=== PATIENT | female | born 1960 | race Caucasian/White ===

== ENCOUNTER → 2016-03-31 | Outpatient (CLI) | payer BC | LOC: LAB 10:18 | DX: I48.0 Paroxysmal atrial fibrillation (principal); I49.3 Ventricular premature depolarization ==

== ENCOUNTER → 2016-12-24 | Outpatient (CLI) | payer BC | LOC: MAMMO 09:53 | DX: Z12.31 Encounter for screening mammogram for malignant neoplasm of breast (principal) | CPT/HCPCS: G0202 ==

== ENCOUNTER → 2018-03-24 | Outpatient (CLI) | payer BC | LOC: MAMMO 03-10 10:00 | DX: Z12.31 Encounter for screening mammogram for malignant neoplasm of breast (principal) ==

== ENCOUNTER → 2019-02-28 | Outpatient (CLI) | payer BC ==
[2019-02-28 09:14] LABS: EOS # 0.2 (0.04-0.40); EOS % 2.8 % (1.0-5.0); HEMATOCRIT 42.1 % (37.0-47.0); HEMOGLOBIN 13.9 g/dL (12.5-16.0); LYMPH# 1.5 (1.50-4.00); MEAN CELL VOLUME 84 fl (78-100); MEAN CORPUSCULAR HEMOGLOBIN 28 pg (27-31); MEAN CORPUSCULAR HGB CONC 33 g/dL (33-37); MEAN PLATELET VOLUME 8.2 fl (7.4-10.4); MONO # 0.7 (0.20-0.80); NEU # 5.7 (1.40-6.50); PLATELET COUNT 304 K/mm3 (130-400); RED CELL DISTRIBUTION WIDTH 13.6 % (11.5-14.5); WHITE BLOOD COUNT 8.2 K/mm3 (4.8-10.8)
[2019-02-28 09:28] LABS: ALBUMIN 3.9 g/dL (3.5-5.0); POTASSIUM 4.3 mmol/L (3.5-5.1)
[2019-02-28 09:30] LABS: CALCIUM 9.5 mg/dL (8.3-10.5)
[2019-02-28 09:33] LABS: TOTAL BILIRUBIN 0.5 mg/dL (0.2-1.2)
== END ==
LOC: LAB 09:00
PROVIDERS: Obstetrics & Gynecology
DX: Z00.00 Encounter for general adult medical examination without abnormal findings (principal)

== ENCOUNTER → 2020-04-09 | Outpatient (CLI) | payer BC | LOC: MAMMO 10:00 | DX: Z12.31 Encounter for screening mammogram for malignant neoplasm of breast (principal) ==

== ENCOUNTER → 2021-02-04 | Day surgery (SDC) | payer BC | LOC: MSO 07:35 | DX: Z12.11 Encounter for screening for malignant neoplasm of colon (principal); I10 Essential (primary) hypertension; G47.33 Obstructive sleep apnea (adult) (pediatric); F41.9 Anxiety disorder, unspecified; Z79.82 Long term (current) use of aspirin; Z79.899 Other long term (current) drug therapy | CPT/HCPCS: 00812; J2704; J7120 ==

== ENCOUNTER 2024-04-06 11:00 | Inpatient (IN) | payer OTHER ==
[~2024-04-06] VITALS: Ht 160 cm; Wt 106.0 kg
[2024-04-06] MEDS ORDERED: TENORMIN25 MG PO (11:55)
[2024-04-06] MEDS ORDERED: GOOD SENSE ASPI81 M1 PO (11:55)
[2024-04-06] MEDS ORDERED: ATORVASTATIN CA10 MG PO (11:56)
[2024-04-06 12:18] LABS: BASO # 0.02 K/mm3 (0.02-0.10); EOS # 0.21 K/mm3 (0.04-0.40); HEMATOCRIT 40.9 % (37.0-47.0); HEMOGLOBIN 13.4 g/dL (12.5-16.0); LYMPH# 1.86 K/mm3 (1.50-4.00); MEAN CELL VOLUME 87 fl (78-100); MEAN CORPUSCULAR HEMOGLOBIN 29 pg (27-31); MEAN CORPUSCULAR HGB CONC 33 g/dL (33-37); MEAN PLATELET VOLUME 8.4 fl (7.4-10.4); MONO # 0.81 K/mm3 (0.20-0.80); NEU # 7.75 K/mm3 (1.40-6.50); PLATELET COUNT 283 K/mm3 (130-400); RED BLOOD COUNT 4.68 M/mm3 (4.10-5.30); RED CELL DISTRIBUTION WIDTH 12.8 % (11.5-14.5); WHITE BLOOD COUNT 10.7 K/mm3 (4.8-10.8)
[2024-04-06] MEDS ORDERED: FLECAINIDE ACET50 MG PO (12:22)
[2024-04-06 12:23] LABS: ALBUMIN 3.9 g/dL (3.4-4.8); SODIUM 139 mmol/L (136-145)
[2024-04-06 12:26] LABS: GLUCOSE 102 mg/dL (65-105); TOTAL PROTEIN 8.3 g/dL (6.2-8.1)
[2024-04-06 12:27] LABS: CARBON DIOXIDE 24 mmol/L (23-31)
[2024-04-06 12:28] LABS: TOTAL BILIRUBIN 0.6 mg/dL (0.2-1.2)
[2024-04-06 12:31] LABS: AST-SGOT 20 U/L (5-34)
[2024-04-06 12:32] LABS: ALT/SGPT 18 U/L (0-55)
[2024-04-06 12:55] LABS: TROPONIN-I < 0.030 ng/mL (0.00-0.033)
[2024-04-06] MEDS ORDERED: Iohexol 350 - 100 ML VIAL IV ONE (13:04)
[2024-04-06] MEDS ORDERED: NS 100 ML IV SCH (13:05)
[2024-04-06 13:08] LABS: D-DIMER 4.19 mg/L FEU (0.15-0.50)
[2024-04-06] MEDS ORDERED: ENOXAPARIN SQ ONE (14:00)
[2024-04-06 15:00] VITALS: BP 133/59
[2024-04-06 15:04] VITALS: BP 133/59
[2024-04-06] MEDS ORDERED: Acetaminophen 325 MG TAB PO PRN (16:00)
[2024-04-06] MEDS ORDERED: Polyethylene Glycol 3350 Powder 17 GM PACKET PO PRN (16:00)
[2024-04-06] MEDS ORDERED: Bisacodyl 5 MG TAB PO PRN (16:00)
[2024-04-06] MEDS ORDERED: Albuterol/Ipratropium 3 MG-0.5 MG/3 ML Neb Soln IH SCH (16:05)
[2024-04-06] MEDS ORDERED: Benzonatate 100 MG CAP PO SCH (16:05)
[2024-04-06] MEDS ORDERED: Docusate Sodium 100 MG CAP PO PRN (16:15)
[2024-04-06 19:48] VITALS: BP 125/68
[2024-04-06] MEDS ORDERED: Famotidine 20 MG TAB PO SCH (21:00)
[2024-04-06] MEDS ORDERED: Apixaban 5 MG TABLET PO SCH (21:00)
[2024-04-06] MEDS ORDERED: guaiFENesin/Dextromethorphan Oral Soln 200-20 MG/10 ML UD PO SCH (21:00)
[2024-04-06 22:51] VITALS: BP 110/64
[2024-04-07 03:00] VITALS: BP 132/61
[2024-04-07 07:10] LABS: BASO # 0.02 K/mm3 (0.02-0.10); EOS # 0.14 K/mm3 (0.04-0.40); EOS % 1.6 % (1.0-5.0); HEMATOCRIT 39.3 % (37.0-47.0); LYMPH# 1.81 K/mm3 (1.50-4.00); MEAN CELL VOLUME 87 fl (78-100); MEAN CORPUSCULAR HEMOGLOBIN 29 pg (27-31); MEAN CORPUSCULAR HGB CONC 33 g/dL (33-37); MEAN PLATELET VOLUME 8.3 fl (7.4-10.4); MONO # 0.74 K/mm3 (0.20-0.80); NEU # 6.25 K/mm3 (1.40-6.50); PLATELET COUNT 260 K/mm3 (130-400); RED CELL DISTRIBUTION WIDTH 12.8 % (11.5-14.5)
[2024-04-07 07:27] LABS: ALBUMIN 3.6 g/dL (3.4-4.8)
[2024-04-07 07:28] LABS: CALCIUM 9.1 mg/dL (8.3-10.5)
[2024-04-07 07:29] LABS: TOTAL PROTEIN 7.9 g/dL (6.2-8.1)
[2024-04-07 07:31] LABS: TOTAL BILIRUBIN 0.6 mg/dL (0.2-1.2)
[2024-04-07 07:56] VITALS: BP 146/68
[2024-04-07] MEDS ORDERED: levoFLOXacin 250 MG TABLET PO SCH (08:12)
[2024-04-07] MEDS ORDERED: Polyethylene Glycol 3350 Powder 17 GM PACKET PO PRN (08:15)
[2024-04-07] MEDS ORDERED: Atenolol 25 MG TAB PO SCH (09:00)
[2024-04-07] MEDS ORDERED: HYDROcodone/Chlorphen Polst ER Susp 10-8 MG/5 ML UD PO SCH (09:00)
[2024-04-07 10:58] VITALS: BP 145/75
[2024-04-07 15:29] VITALS: BP 144/68
[2024-04-07 19:00] VITALS: BP 130/76
[2024-04-07 23:00] VITALS: BP 131/72
[2024-04-08 03:00] VITALS: BP 143/76
[2024-04-08 07:10] VITALS: BP 118/71
[2024-04-08] MEDS ORDERED: HYDROCODONE-CH115 ML PO (08:18)
[2024-04-08] MEDS ORDERED: IPRATROPIUM BROM3 M1 IH (08:18)
[2024-04-08] MEDS ORDERED: ELIQUIS5 MG PO (08:18)
[2024-04-08] MEDS ORDERED: LEVOFLOXACIN750 MG PO (08:18)
== END 2024-04-08 10:41 | disposition home or self-care (01) | DRG 134 ==
LOC: ED 11:00 → MED/SURG 14:04
PROVIDERS: ADMIT Nurse Practitioner
DX: I26.99 Other pulmonary embolism without acute cor pulmonale (principal); J18.9 Pneumonia, unspecified organism; I27.20 Pulmonary hypertension, unspecified; I82.402 Acute embolism and thrombosis of unspecified deep veins of left lower extremity; I48.0 Paroxysmal atrial fibrillation; G47.33 Obstructive sleep apnea (adult) (pediatric); E78.5 Hyperlipidemia, unspecified; E66.9 Obesity, unspecified; Z68.41 Body mass index [BMI] 40.0-44.9, adult; Z88.6 Allergy status to analgesic agent; Z91.199 Patient's noncompliance with other medical treatment and regimen due to unspecified reason
CPT/HCPCS: J1650; J1956; Q9967